=== PATIENT | female | born 1995 | race Caucasian/White ===

== ENCOUNTER 2019-09-05 00:44 | Emergency (ER) | payer MEDICAID ==
[~2019-09-05] VITALS: Ht 160 cm; Wt 67.0 kg
[2019-09-05] MEDS ORDERED: SODIUM CHLORIDE 0.9% 1,000 ML IV ONE (04:15)
[2019-09-05] MEDS ORDERED: ACETAMINOPHEN 325MG TABLET PO ONE (04:15)
[2019-09-05 04:49] LABS: CHLORIDE 104 mEq/L (98-107); INR 1.1; PARTIAL THROMBOPLASTIN TIME 30.9 sec (23.4-31.0); PROTHROMBIN TIME 11.4 sec (9.6-11.0)
[2019-09-05 04:53] LABS: ETHANOL BLOOD < 10 mg/dL
[2019-09-05 04:56] LABS: BASOPHILS % 0.8 % (0.0-2.0); HEMATOCRIT. 39.6 % (36.0-48.0); HEMOGLOBIN. 13.5 g/dL (12.0-16.0); LYMPHOCYTES % 14.3 % (20.0-50.0); MEAN CORPUSCULAR HEMOGLOBIN 30.8 pg (28.0-32.0); MEAN CORPUSCULAR VOLUME 90.4 fL (81.0-99.0); MEAN PLATELET VOLUME 8.3 fl (7.4-10.4); MONOCYTES % 11.2 % (2.0-8.0); NEUTROPHILS % 73.7 % (40.0-76.0); PLATELET 335 x1000/uL (130-400); RED BLOOD CELL COUNT 4.38 mill/uL (4.2-5.4); RED CELL DISTRIBUTION WIDTH 14.5 % (11.6-14.6)
[2019-09-05 05:22] LABS: HCG SCREEN NEGATIVE
[2019-09-05] MEDS ORDERED: IOHEXOL-300 100 ML BOTTLE ONE (06:35)
[2019-09-05 08:05] VITALS: BP 114/74
== END 2019-09-05 09:03 | disposition home or self-care (01) ==
LOC: ER 00:44
DX: S80.211A Abrasion, right knee, initial encounter (principal); R00.0 Tachycardia, unspecified; R55 Syncope and collapse; V49.09XA Driver injured in collision with other motor vehicles in nontraffic accident, initial encounter; Y93.89 Activity, other specified; Y92.89 Other specified places as the place of occurrence of the external cause; Y99.8 Other external cause status
CPT/HCPCS: 36415; 70450; 71045; 71260; 72125; 72170; 74177; 80053; 80320; 81025; 83690; 84443; 84484; 84703; 85025; 85610; 85730; 93005; 99285; J7030; Q9967; G0480

== ENCOUNTER 2019-11-02 07:29 | Emergency (ER) | payer MEDICAID ==
[~2019-11-02] VITALS: Ht 157.5 cm; Wt 70.0 kg
[2019-11-02] MEDS ORDERED: ACETAMINOPHEN 500MG TABLET PO SCH (08:45)
[2019-11-02 08:46] LABS: CLARITY URINE CLOUDY (CLEAR); COLOR URINE YELLOW (YELLOW); KETONES URINE NEGATIVE (NEGATIVE); LEUKOCYTE ESTERASE URINE NEGATIVE (NEGATIVE); NITRITE URINE NEGATIVE (NEGATIVE); OCCULT BLOOD URINE NEGATIVE (NEGATIVE); PH URINE 5.5 (4.5-8.0); PROTEIN URINE 1+ (NEGATIVE); SPECIFIC GRAVITY URINE 1.022 (1.005-1.030)
[2019-11-02 09:00] LABS: BASOPHILS % 1.4 % (0.0-2.0); EOSINOPHILS % 0.9 % (0.0-5.0); HEMATOCRIT. 40.5 % (36.0-48.0); HEMOGLOBIN. 13.2 g/dL (12.0-16.0); LYMPHOCYTES % 43.9 % (20.0-50.0); MEAN CORPUSCULAR HEMOGLOBIN 30.1 pg (28.0-32.0); MEAN CORPUSCULAR VOLUME 92.2 fL (81.0-99.0); MEAN PLATELET VOLUME 8.4 fl (7.4-10.4); MONOCYTES % 6.7 % (2.0-8.0); NEUTROPHILS % 47.1 % (40.0-76.0); PLATELET 259 x1000/uL (130-400); RED BLOOD CELL COUNT 4.39 mill/uL (4.2-5.4); RED CELL DISTRIBUTION WIDTH 16.2 % (11.6-14.6)
[2019-11-02 09:05] LABS: CHLORIDE 110 mEq/L (98-107)
[2019-11-02] MEDS ORDERED: FUROSEMIDE 40MG/4ML VIAL IVP NR (09:45)
[2019-11-02] MEDS ORDERED: IOHEXOL-350 100 ML BOTTLE ONE (12:23)
[2019-11-02] MEDS ORDERED: MORPHINE SULFATE 4 MG/ML CPJ (NOT FOR IM USE) IV ONE (14:45)
[2019-11-02] MEDS ORDERED: ONDANSETRON HCL 4MG/2ML INJ IV ONE (14:45)
[2019-11-02 15:14] VITALS: BP 100/75
== END 2019-11-02 15:33 | disposition left against medical advice (07) ==
LOC: ER 07:29
DX: I50.9 Heart failure, unspecified (principal); R01.1 Cardiac murmur, unspecified; R06.02 Shortness of breath; F15.10 Other stimulant abuse, uncomplicated; Z86.711 Personal history of pulmonary embolism
CPT/HCPCS: 36415; 71045; 71275; 80053; 81003; 81025; 83880; 84484; 85025; 93005; 93970; 96374; 96375; 99285; J1940; J2270; J2405; Q9967

== ENCOUNTER 2019-11-23 06:57 | Emergency (ER) | payer MEDICAID ==
[~2019-11-23] VITALS: Ht 165.1 cm; Wt 60.0 kg
[2019-11-23] MEDS ORDERED: MORPHINE SULFATE 4 MG/ML CPJ (NOT FOR IM USE) IV STA (07:51)
[2019-11-23] MEDS ORDERED: ONDANSETRON HCL 4MG/2ML INJ IV STA (07:51)
[2019-11-23] MEDS ORDERED: METRONIDAZOLE 500 MG PREMIX 100 ML IV ONE (08:00)
[2019-11-23] MEDS ORDERED: CEFTRIAXONE 1 G PREMIX 50 ML IV ONE (08:00)
[2019-11-23 08:33] LABS: BASOPHILS % 1.9 % (0.0-2.0); EOSINOPHILS % 2.5 % (0.0-5.0); HEMATOCRIT. 42.3 % (36.0-48.0); LYMPHOCYTES % 43.1 % (20.0-50.0); MEAN CORPUSCULAR HEMOGLOBIN 29.4 pg (28.0-32.0); MEAN CORPUSCULAR VOLUME 89.1 fL (81.0-99.0); MEAN PLATELET VOLUME 8.4 fl (7.4-10.4); MONOCYTES % 5.5 % (2.0-8.0); PLATELET 322 x1000/uL (130-400); RED BLOOD CELL COUNT 4.75 mill/uL (4.2-5.4); RED CELL DISTRIBUTION WIDTH 16.8 % (11.6-14.6)
[2019-11-23 08:36] LABS: CHLORIDE 108 mEq/L (98-107)
[2019-11-23 08:37] LABS: CLARITY URINE TURBID (CLEAR); COLOR URINE RED (YELLOW); KETONES URINE NEGATIVE (NEGATIVE); LEUKOCYTE ESTERASE URINE 3+ (NEGATIVE); NITRITE URINE NEGATIVE (NEGATIVE); OCCULT BLOOD URINE 3+ (NEGATIVE); PH URINE 5.5 (4.5-8.0); PROTEIN URINE 3+ (NEGATIVE); SPECIFIC GRAVITY URINE 1.022 (1.005-1.030)
[2019-11-23 08:40] LABS: ETHANOL BLOOD < 10 mg/dL
[2019-11-23 08:48] LABS: *AMPHETAMINES SCREEN URINE NEGATIVE (NEGATIVE); *BARBITURATES SCREEN URINE NEGATIVE (NEGATIVE); *COCAINE SCREEN URINE NEGATIVE (NEGATIVE)
[2019-11-23 08:50] LABS: *BENZODIAZEPINES SCREEN URINE NEGATIVE (NEGATIVE); METHADONE URINE SCREEN NEGATIVE (NEGATIVE); PHENCYCLIDINE URINE SCREEN NEGATIVE (NEGATIVE)
[2019-11-23 08:57] LABS: INR 1.2; PROTHROMBIN TIME 12.8 sec (9.6-11.0)
[2019-11-23 09:03] LABS: CANNABINOID URINE SCREEN PRESUMTIVE POSITIVE (NEGATIVE); OPIATES URINE SCREEN PRESUMTIVE POSITIVE (NEGATIVE)
[2019-11-23] MEDS ORDERED: IOHEXOL-300 100 ML BOTTLE ONE (10:00)
[2019-11-23] MEDS ORDERED: MORPHINE SULFATE 4 MG/ML CPJ (NOT FOR IM USE) IV ONE (14:00)
[2019-11-23 14:32] VITALS: BP 107/97
== END 2019-11-23 15:05 | disposition short-term general hospital (02) ==
LOC: ER 06:57 → CANBEDREQ 15:46
DX: K63.1 Perforation of intestine (nontraumatic) (principal); R07.89 Other chest pain; I50.9 Heart failure, unspecified
CPT/HCPCS: 36415; 71045; 74177; 76705; 80053; 80305; 80320; 81003; 81025; 83605; 83690; 84484; 85025; 85610; 86850; 86900; 86901; 87040; 87086; 93005; 96365; 96368; 96375; 96376; 99285; J0696; J2270; J2405; J3490; Q9967; G0480

== ENCOUNTER 2019-12-03 00:30 | Emergency (ER) | payer MEDICAID ==
[~2019-12-03] VITALS: Ht 165.1 cm; Wt 64.0 kg
[2019-12-03] MEDS ORDERED: ASPIRIN 81MG TABLET PO ONE (01:15)
[2019-12-03 02:06] LABS: BASOPHILS % 2.2 % (0.0-2.0); CHLORIDE 106 mEq/L (98-107); EOSINOPHILS % 1.5 % (0.0-5.0); HEMATOCRIT. 40.6 % (36.0-48.0); HEMOGLOBIN. 13.3 g/dL (12.0-16.0); LYMPHOCYTES % 41.3 % (20.0-50.0); MEAN CORPUSCULAR HEMOGLOBIN 28.7 pg (28.0-32.0); MEAN CORPUSCULAR VOLUME 87.5 fL (81.0-99.0); MEAN PLATELET VOLUME 8.5 fl (7.4-10.4); MONOCYTES % 5.8 % (2.0-8.0); NEUTROPHILS % 49.2 % (40.0-76.0); PLATELET 310 x1000/uL (130-400); RED BLOOD CELL COUNT 4.64 mill/uL (4.2-5.4); RED CELL DISTRIBUTION WIDTH 16.8 % (11.6-14.6)
[2019-12-03 02:09] LABS: INR 1.3; PARTIAL THROMBOPLASTIN TIME 28.4 sec (23.4-31.0); PROTHROMBIN TIME 14.4 sec (9.6-11.0)
[2019-12-03] MEDS ORDERED: KETOROLAC 30MG/ML VIAL IV SCH (03:00)
[2019-12-03] MEDS ORDERED: ONDANSETRON 4MG ODT PO ONE (04:00)
[2019-12-03] MEDS ORDERED: ACETAMINOPHEN 500MG TABLET PO ONE (04:00)
[2019-12-03] MEDS ORDERED: IOHEXOL-300 100 ML BOTTLE ONE (04:32)
[2019-12-03 04:57] VITALS: BP 102/69
[2019-12-03 05:00] LABS: CLARITY URINE CLOUDY (CLEAR); COLOR URINE YELLOW (YELLOW); KETONES URINE NEGATIVE (NEGATIVE); LEUKOCYTE ESTERASE URINE 2+ (NEGATIVE); NITRITE URINE NEGATIVE (NEGATIVE); OCCULT BLOOD URINE 1+ (NEGATIVE); PROTEIN URINE 1+ (NEGATIVE); SPECIFIC GRAVITY URINE 1.016 (1.005-1.030); UROBILINOGEN URINE 0.2 E.U./dL (0.2-1.0)
[2019-12-03 05:09] LABS: METHADONE URINE SCREEN NEGATIVE (NEGATIVE)
[2019-12-03 05:10] LABS: *BARBITURATES SCREEN URINE NEGATIVE (NEGATIVE); *BENZODIAZEPINES SCREEN URINE NEGATIVE (NEGATIVE); *COCAINE SCREEN URINE NEGATIVE (NEGATIVE); OPIATES URINE SCREEN NEGATIVE (NEGATIVE); PHENCYCLIDINE URINE SCREEN NEGATIVE (NEGATIVE)
[2019-12-03 05:15] LABS: *AMPHETAMINES SCREEN URINE PRESUMTIVE POSITIVE (NEGATIVE)
[2019-12-03] MEDS ORDERED: CEFTRIAXONE 1 G PREMIX 50 ML IV SCH (05:15)
[2019-12-03 05:16] LABS: CANNABINOID URINE SCREEN PRESUMTIVE POSITIVE (NEGATIVE)
== END 2019-12-03 05:26 | disposition home or self-care (01) ==
LOC: ER 00:30
DX: G89.29 Other chronic pain (principal); R07.9 Chest pain, unspecified; N39.0 Urinary tract infection, site not specified; I50.9 Heart failure, unspecified; F12.10 Cannabis abuse, uncomplicated; F15.10 Other stimulant abuse, uncomplicated; F19.10 Other psychoactive substance abuse, uncomplicated; K52.9 Noninfective gastroenteritis and colitis, unspecified; Z76.5 Malingerer [conscious simulation]
CPT/HCPCS: 36415; 71045; 74177; 80053; 80305; 81003; 81025; 83880; 84484; 85025; 85610; 85730; 93005; 96374; 99285; J1885; Q0162; Q9967; Z7610

== ENCOUNTER 2024-08-05 08:31 | Emergency (ER) | payer MEDICAID, OTHER ==
[~2024-08-05] VITALS: Ht 165.1 cm; Wt 75.0 kg
[2024-08-05 08:36] VITALS: TEMP 36.8
[2024-08-05 08:47] VITALS: O2SAT 100
[2024-08-05] MEDS: SODIUM CHLORIDE 0.9% 1,000 ML IV ONE (09:03)
[2024-08-05 09:05] LABS: BASOPHILS % 1.3 % (0.0-2.0); EOSINOPHILS % 0.9 % (0.0-5.0); HEMATOCRIT. 31.5 % (36.0-48.0); HEMOGLOBIN. 10.6 g/dL (12.0-16.0); LYMPHOCYTES % 20.7 % (20.0-50.0); MEAN CORPUSCULAR HEMOGLOBIN 31.9 pg (28.0-32.0); MEAN CORPUSCULAR HGB CONC 33.6 g/dL (31.0-37.0); MEAN CORPUSCULAR VOLUME 94.9 fL (81.0-99.0); MEAN PLATELET VOLUME 7.7 fl (7.4-10.4); MONOCYTES % 6.8 % (2.0-8.0); NEUTROPHILS % 70.3 % (40.0-76.0); PLATELET 332 x1000/uL (130-400); RED BLOOD CELL COUNT 3.32 mill/uL (4.2-5.4); RED CELL DISTRIBUTION WIDTH 14.4 % (11.6-14.6); WHITE BLOOD COUNT 10.4 x1000/uL (4.5-11.0)
[2024-08-05 09:17] LABS: CHLORIDE 109 mEq/L (98-107); INR 0.9; POTASSIUM 3.7 mEq/L (3.5-5.1); PROTHROMBIN TIME 10.3 sec (9.6-11.0); SODIUM 143 mEq/L (136-145)
[2024-08-05 09:18] LABS: CARBON DIOXIDE 24 mEq/L (21-32)
[2024-08-05 09:19] LABS: CALCIUM 8.9 mg/dL (8.7-10.4)
[2024-08-05 09:23] LABS: CREATININE 0.6 mg/dL (0.6-1.0)
[2024-08-05 09:24] LABS: GLUCOSE 115 mg/dL (70-105)
[2024-08-05 09:25] LABS: ALANINE AMINOTRANSFERASE 8 IU/L (10-49); ALBUMIN 3.3 g/dL (3.2-4.8); ASPARTATE AMINOTRANSFERASE 13 IU/L (<34)
[2024-08-05 09:26] LABS: BILIRUBIN TOTAL 0.4 mg/dL (0.1-1.0); PROTEIN TOTAL 5.6 g/dL (6.0-8.3)
[2024-08-05 09:30] LABS: BILIRUBIN DIRECT < 0.1 mg/dL (<=3.0)
[2024-08-05] MEDS: METHYLERGONOVINE MALEATE 0.2 MG/ML IM ONE (09:30)
[2024-08-05] MEDS: TRANEXAMIC ACID 1,000MG/10ML IV ONE (09:31)
[2024-08-05] MEDS: ACETAMINOPHEN 1000MG/100ML 100 ML IV ONE (09:32)
[2024-08-05 09:34] LABS: UREA NITROGEN BLOOD 10 mg/dL (9-23)
[2024-08-05 12:00] VITALS: BP 89/60; PULSE 92; RESP 16; O2SAT 99
== END 2024-08-05 13:07 | disposition left against medical advice (07) ==
LOC: ER 08:31
DX: O46.92 Antepartum hemorrhage, unspecified, second trimester (principal); R57.8 Other shock; I50.9 Heart failure, unspecified; Z86.711 Personal history of pulmonary embolism; Z98.890 Other specified postprocedural states
CPT/HCPCS: 99291; 96365; 96366; 76856; 96375; 80076; 80048; 84702; 85025; 85610; 86850; 86900; 86901; 86920; 36415; 96372; J2210; J7030; J0131